=== PATIENT | female | born 1945 | race Caucasian/White ===

== ENCOUNTER → 2016-09-05 11:11 | Outpatient (CLI) | payer MEDICARE ==
[2016-05-07 14:02] VITALS: BMI 41.1
[~2016-09-05 11:11] MED LIST: ALDACTONE100 MG PO; ALDACTONE25 MG PO; BENZONATATE200 MG PO; BUMEX 1 MG TAB1 MG PO; COZAAR100 MG PO; DESYREL50 MG PO; ELIQUIS5 MG PO; FEXOFENADINE HC60 MG PO; FISH OIL 1,2001 CAP PO; FLUTICASONE PRO16 GM NASAL; GABAPENTIN100 MG PO; GLUCOPHAGE500 MG PO; HYCODAN PO; IPRAT-ALBUT 0.5-3 ML UPD; LANTUS SOL100 UNIT/1 SQ; LASIX40 MG PO; LOFIBRA134 MG PO; MOBIC7.5 MG PO; MULTAQ400 MG PO; NEURONTIN 100100 MG; NEURONTIN 300300 MG PO; NEXIUM20 MG PO; NOVOLOG100 U/M1 SC; NOVOLOG100 U/M1 SQ; PAXIL20 MG PO; PRILOSEC10 MG; PULMICORT0.5 MG/21 INH; ROBITUSSIN AC (10 M1 PO; SINGULAIR10 MG PO; STERAPRED DS 1210 MG PO; SYMBICORT 16010.2 GM INH; TOPROL XL25 MG PO; TRAZODONE HCL50 MG PO; VIBRAMYCIN 100100 MG PO; VICTOZA0.6 MG/0.1 SQ; VITAMIN B-121000 MC3; VITAMIN B-121000 MCG PO; VITAMIN D31000 UNIT PO; XOPENEX 1.1.25 MG/3 UPD; ZANTAC150 MG PO; ZITHROMAX250 MG PO; ZYLOPRIM300 MG PO
== END | disposition home or self-care (01) ==
LOC: D.RAD 10:00 → D.RT 10:00 → D.RAD 11:00
DX: J45.909 Unspecified asthma, uncomplicated (principal)

== ENCOUNTER 2017-01-29 12:11 | Outpatient (CLI) | payer MEDICARE ==
[2016-05-07 14:02] VITALS: BMI 41.1
== END 2017-01-29 16:38 ==
LOC: D.MAMMO 12:11
DX: Z12.31 Encounter for screening mammogram for malignant neoplasm of breast (principal)

== ENCOUNTER → 2017-11-10 08:37 | Outpatient (CLI) | payer MEDICARE ==
[2016-05-07 14:02] VITALS: BMI 41.1
== END | disposition home or self-care (01) ==
LOC: D.RAD 09-16 10:00 → D.RT 09-16 10:00 → D.RAD 09-16 11:00 → D.RT 08:37
DX: J44.9 Chronic obstructive pulmonary disease, unspecified (principal)

== ENCOUNTER → 2018-02-22 10:26 | Outpatient (CLI) | payer MEDICARE ==
[2016-05-07 14:02] VITALS: BMI 41.1
== END | disposition home or self-care (01) ==
LOC: D.CT 10:26
DX: R10.12 Left upper quadrant pain (principal)

== ENCOUNTER → 2018-04-06 18:31 | Outpatient (CLI) | payer MEDICARE ==
[2016-05-07 14:02] VITALS: BMI 41.1
== END | disposition home or self-care (01) ==
LOC: D.MAMMO 11:30
DX: Z12.31 Encounter for screening mammogram for malignant neoplasm of breast (principal)

== ENCOUNTER → 2018-04-30 09:10 | Outpatient (CLI) | payer MEDICARE ==
[2016-05-07 14:02] VITALS: BMI 41.1
== END | disposition home or self-care (01) ==
LOC: D.CT 09:10
DX: R10.9 Unspecified abdominal pain (principal)

== ENCOUNTER 2018-09-01 05:42 | Day surgery (SDC) | payer MEDICARE ==
[~2018-09-01] VITALS: Ht 160 cm; Wt 79.5 kg
[2018-09-01 06:08] LABS: BASOPHILS 0.6 % (0-2); EOSINOPHILS 3.1 % (0-7); HEMATOCRIT 37.5 % (36.0-48.0); HEMOGLOBIN 12.4 g/dL (12-16); IMMATURE GRANULOCYTES 0.2 % (0-5); LYMPHOCYTES 38.5 % (15-50); MCH 31.2 pg (26.0-34.0); MCHC 33.1 g/dL (31.0-37.0); MCV 94.2 fL (80.0-100.0); NEUTROPHILS 48.6 % (40-80); PLATELET COUNT 176 10x3/uL (130-400); RBC 3.98 10x6/uL (4.00-5.40); RDW 12.8 % (11.5-14.5); WBC 5.1 10x3/uL (4.8-10.8)
[2018-09-01 06:17] LABS: ANION GAP 11.5 mmol/L (8-16); CARBON DIOXIDE 30.5 mmol/L (21.0-32.0); CREATININE - SERUM 0.8 mg/dL (0.6-1.3)
[2018-09-01] MEDS ORDERED: XARELTO20 MG (06:36)
[2018-09-01] MEDS ORDERED: XARELTO20 MG PO (06:36)
[2018-09-01 06:45] VITALS: BP 118/51; Ht 160 cm; Wt 79.5 kg
--- NOTE | 2018-09-01 07:44 | NUR ---
0744-DILATE ESOPHAGUS WITH 18-20 CRE BALLOON.
--- NOTE | 2018-09-01 08:30 | NUR ---
DC INSTRUCTIONS GIVEN TO PT. STATES UNDERSTANDING. DC'D IV CATH FULLY INTACT.
--- NOTE | 2018-09-01 08:41 | NUR ---
PT LEFT UNIT VIA AT 0818
--- NOTE | 2018-09-06 10:43 | OP ---
PATIENT NAME: CHARLEY PEPE MEDICAL RECORD: [id number] :46 LOCATION:[facility] ADMISSION DATE: SURGEON: DARLING TSAI DO DATE OF OPERATION: 09/01/2018 PROCEDURE: EGD with balloon dilation and biopsies. INDICATIONS FOR PROCEDURE: Left upper quadrant abdominal pain and dysphagia, status post Schatzki ring dilation in October of 2015. SCOPE: Olympus video gastroscope. MEDICATIONS: Propofol 180 mg IV per anesthesia. ESTIMATED BLOOD LOSS: Minimal. COMPLICATIONS: None. FINDINGS: Informed consent was given. The patient was made comfortable with the above medication. After reaching an adequate level of sedation by slow IV push, the patient was placed on her left side. The endoscope was advanced under direct visualization through the mouth to the jejunum. The upper, middle, and lower thirds of the esophagus appeared normal. At the GE junction, there was some minimal reflux changes as well as some esophageal stenosis. A CRE dilating balloon was placed through the working channel of the endoscope and the stenosis was dilated up to 20 mm diameter successfully. The endoscope was advanced beyond the GE junction into the stomach and retroflexed to view the cardia and fundus, which appeared normal. In the stomach, there was evidence of a prior intervention consistent with a Olivia-en-Y gastric bypass. The gastric pouch had some vascular changes and appeared smooth with patchy erythematous sites. A single cold forceps biopsy was taken to submit for histopathology and to rule out the presence of H. pylori. The anastomosis appeared healthy. The endoscope was advanced beyond this site and into both the blind limb and Olivia limb. The endoscope traversed the jejunum approximately 40 cm. It appeared normal in its entirety. The endoscope was then withdrawn from the patient. The patient tolerated the procedure well and there were no complications. IMPRESSION: 1. Minimal reflux esophagitis. 2. Esophageal stenosis at the GE junction, status post dilation to 20 mm. 3. Gastritis. 4. History of Olivia-en-Y gastric bypass. PLAN AND RECOMMENDATIONS: 1. Discharge home when recovery parameters are met. 2. Follow up biopsy specimen results. 3. GERD diet and reflux precautions. 4. Trial of PPI 40 mg omeprazole or equivalent daily times 30 days. 5. Follow up in GI clinic in 4 weeks. If dysphagia persists, we will consider barium esophagram and/or esophageal manometry. With the patient's stenosis in the distal esophagus and GE junction, it is possible that she has achalasia. Regarding the left upper quadrant pain, I suspect that the patient's Olivia-en-Y gastric bypass could be playing a role in this and that this could be postsurgical changes. We will see what trial of PPI does for symptoms at this time. OPERATIVE REPORT [id number] LYNDONCHARLEY HORNE TRANSINT:[id number] Voice Confirmation ID: [id number] DOCUMENT ID: [id number] DARLING TSAI DO at 1043 CC: [id number] DICTATION DATE: 09/01/18 0756 FURNACE LOADER: 09/01/18 1207 [facility] 09/01/18 [facility] [address] [place] [address]
== END 2018-09-01 08:35 | disposition home or self-care (01) ==
LOC: D.OPS 05:42
PROVIDERS: Anesthesiology
DX: K22.2 Esophageal obstruction (principal); K29.70 Gastritis, unspecified, without bleeding; Z98.84 Bariatric surgery status; Z01.812 Encounter for preprocedural laboratory examination

== ENCOUNTER → 2018-10-21 08:15 | Outpatient (CLI) | payer MEDICARE ==
[2018-09-01 06:45] VITALS: BMI 31.0
[~2018-10-21 08:15] MED LIST changes: +XARELTO20 MG; +XARELTO20 MG PO
[2018-10-21 10:10] LABS: AMYLASE - SERUM 85 U/L (25-115); LIPASE 146 U/L (73-393)
== END | disposition home or self-care (01) ==
LOC: D.OPS 08:15
PROVIDERS: ATTEND Internal Medicine Gastroenterology
DX: R13.10 Dysphagia, unspecified (principal); R10.12 Left upper quadrant pain; R11.0 Nausea; Z01.812 Encounter for preprocedural laboratory examination

== ENCOUNTER → 2018-11-09 08:52 | Outpatient (CLI) | payer MEDICARE ==
[2018-09-01 06:45] VITALS: BMI 31.0
== END | disposition home or self-care (01) ==
LOC: D.RT 08:52
PROVIDERS: ATTEND Internal Medicine Pulmonary Disease
DX: J44.9 Chronic obstructive pulmonary disease, unspecified (principal)

== ENCOUNTER 2018-12-15 09:26 | Day surgery (SDC) | payer MEDICARE ==
[2018-12-15 10:05] LABS: HEMATOCRIT 35.8 % (36.0-48.0); MCH 30.9 pg (26.0-34.0); MCHC 33.5 g/dL (31.0-37.0); MCV 92.3 fL (80.0-100.0); MEAN PLATELET VOLUME 9.9 fL (7.4-10.4); RBC 3.88 10x6/uL (4.00-5.40); RDW 12.6 % (11.5-14.5); WBC 6.5 10x3/uL (4.8-10.8)
[2018-12-15] MEDS ORDERED: TESSALON PERLE100 MG PO (10:47)
[2018-12-15] MEDS ORDERED: XALATAN 0.0052.5 ML EACH EYE (10:47)
[2018-12-15] MEDS ORDERED: CALCIUM 250+D T1 TAB PO (10:48)
[2018-12-15 11:15] VITALS: BP 120/52; BMI 31.0
--- NOTE | 2018-12-20 07:50 | OP ---
PATIENT NAME: CHARLEY PEPE MEDICAL RECORD: [id number] :46 LOCATION:[facility] ADMISSION DATE: SURGEON: DARLING TSAI DO DATE OF OPERATION: 12/15/2018 PROCEDURE: EGD. INDICATIONS FOR PROCEDURE: Dysphagia, status post dilation in August of 2018. SCOPE: Olympus video gastroscope. MEDICATIONS: Propofol 50 mg IV per anesthesia. ESTIMATED BLOOD LOSS: None. COMPLICATIONS: None. FINDINGS: Informed consent was given. The patient was made comfortable with the above medication. After reaching an adequate level of sedation by slow IV push, the patient was placed on her left side. The endoscope was advanced under direct visualization through the mouth to the jejunum. The entire esophagus appeared normal. At the GE junction, there were minimal changes of reflux esophagitis. The previously mentioned Schatzki ring present at the GE junction on the barium esophagram was not appreciated on this examination. The endoscope was then advanced into the stomach where a significant amount of food retention was encountered. Retroflexion was not performed due to this. The endoscope was able to be advanced to the gastrojejunostomy, which appeared normal and patent. It did not appear to be strictured or narrowed. The endoscope was advanced into the jejunum for a short period before withdrawing due to safety concerns with the significant food retention. The endoscope was completely withdrawn from the patient. The patient tolerated the procedure well and there were no complications. IMPRESSIONS: 1. Minimal reflux esophagitis. 2. Significant food retention concerning for gastroparesis. 3. History of gastric bypass with a gastrojejunostomy, which is patent. PLAN AND RECOMMENDATIONS: 1. Discharge home when recovery parameters are met. 2. We will discuss a gastric emptying scan with the patient and schedule if she wishes. 3. Regarding the findings on the esophagram and manometry study, the condition is difficult to address completely. The barium esophagram was normal other than a prominent Schatzki's ring, which was nonobstructing. She also had question of narrowing at the gastrojejunostomy. That is not evident on endoscopy today. I believe the tablet was reaching the distal stomach and the gastrojejunostomy is somewhat positioned on the side of the stomach, creating an angle where a tablet would pass by it. Regarding the manometry study, the patient had 20% swallows, which were weak and 20%, which were ineffective. She did have a very slightly increased basal and residual lower esophageal sphincter pressure, which created an outflow obstruction reporting from the GE junction on Irvine classification findings. At this time, we will proceed with gastric emptying scan and make sure that this is not contributing to her overall symptomatology. As described, last time, she may be developing achalasia and this may just be incomplete OPERATIVE REPORT [id number] CHARLEY PEPE achalasia. TRANSINT:[id number] Voice Confirmation ID: [id number] DOCUMENT ID: [id number] DARLING TSAI DO at 0750 CC: [id number] DICTATION DATE: 12/15/18 1154 CYCLING INSTRUCTOR: 12/15/18 1212 [facility] 12/15/18 [facility] [address] [place] [address]
== END 2018-12-15 13:45 | disposition home or self-care (01) ==
LOC: D.OPS 09:26
PROVIDERS: Anesthesiology; ATTEND Internal Medicine Gastroenterology
DX: K21.0 Gastro-esophageal reflux disease with esophagitis (principal); Z98.84 Bariatric surgery status; Z93.4 Other artificial openings of gastrointestinal tract status; Z01.812 Encounter for preprocedural laboratory examination

== ENCOUNTER → 2018-12-29 11:04 | Outpatient (CLI) | payer MEDICARE ==
[2018-12-15 11:15] VITALS: BMI 31.0
[~2018-12-29 11:04] MED LIST changes: +CALCIUM 250+D T1 TAB PO; +TESSALON PERLE100 MG PO; +XALATAN 0.0052.5 ML EACH EYE
== END | disposition home or self-care (01) ==
LOC: D.RAD 11:04
PROVIDERS: ATTEND Internal Medicine Gastroenterology
DX: R13.10 Dysphagia, unspecified (principal)

== ENCOUNTER → 2018-12-31 10:53 | Outpatient (CLI) | payer MEDICARE ==
[2018-12-15 11:15] VITALS: BMI 31.0
== END | disposition home or self-care (01) ==
LOC: D.NM 12-24 09:22
PROVIDERS: ATTEND Internal Medicine Gastroenterology
DX: R10.84 Generalized abdominal pain (principal); R11.0 Nausea

== ENCOUNTER → 2019-06-23 10:46 | Outpatient (CLI) | payer MEDICARE | END | disposition home or self-care (01) | LOC: D.RT 10:46 | PROVIDERS: ATTEND Internal Medicine Pulmonary Disease | DX: J44.9 Chronic obstructive pulmonary disease, unspecified (principal) ==

== ENCOUNTER → 2019-07-21 23:17 | Outpatient (CLI) | payer MEDICARE | END | disposition home or self-care (01) | LOC: D.MAMMO 11:45 | PROVIDERS: ATTEND Family Medicine | DX: N64.4 Mastodynia (principal) ==

== ENCOUNTER 2020-11-22 06:59 | Day surgery (SDC) | payer MEDICARE ==
[~2020-11-22] VITALS: Ht 160 cm; Wt 87.5 kg
[~2020-11-22 06:59] MED LIST changes: +ALBUTEROL SULF8.5 GM INH; +BAYER CHEWABLE81 MG PO; +BREO ELLIPTA 11 EACH INH; +MELATONIN 3 MG1 TAB PO; +PRAVASTATIN TAB 10M PO; +VITAMIN B-122500 MCG PO; +VITAMIN C500 M1 PO; +VITAMIN D-32000 UNIT PO
[2020-11-22 07:25] LABS: BASOPHILS 0.1 % (0-2); EOSINOPHILS 0.1 % (0-7); HEMATOCRIT 38.2 % (36.0-48.0); HEMOGLOBIN 12.3 g/dL (12-16); IMMATURE GRANULOCYTES 0.4 % (0-5); LYMPHOCYTE ABS# 2.43 10x3/uL (1.18-3.74); LYMPHOCYTES 24.6 % (15-50); MCH 29.6 pg (26.0-34.0); MCHC 32.2 g/dL (31.0-37.0); MCV 91.8 fL (80.0-100.0); MEAN PLATELET VOLUME 9.9 fL (7.4-10.4); MONOCYTES 7.6 % (2-11); NEUTROPHIL ABS# 6.62 10x3/uL (1.56-6.13); NEUTROPHILS 67.2 % (40-80); PLATELET COUNT 300 10x3/uL (130-400); RBC 4.16 10x6/uL (4.00-5.40); RDW 14.2 % (11.5-14.5); WBC 9.9 10x3/uL (4.8-10.8)
[2020-11-22 07:34] LABS: CALCIUM 9.1 mg/dL (8.5-10.1); CARBON DIOXIDE 30.4 mmol/L (21.0-32.0); CREATININE - SERUM 0.9 mg/dL (0.6-1.3); POTASSIUM - SERUM 3.4 mmol/L (3.5-5.1)
[2020-11-22 08:48] VITALS: BP 147/60; Ht 160 cm; Wt 87.5 kg
[2020-11-22] MEDS ORDERED: HYDROCODON-ACE1 EA10 PO (12:19)
--- NOTE | 2020-11-22 12:34 | NUR ---
UPON FURTHER ASSESSMENT PATIENT DENIES NUMBNESS/TINGLING TO ANY EXTREMITY. SENSATIONS INTACT.
--- NOTE | 2020-11-22 13:45 | NUR ---
PT HAD NORCO SCRIPT, PT IS ALLERGIC. THIS NURSE SPOKE TO DR OTTO. STATES HE WILL HAVE HIS OFFICE TAKE CARE OF PAIN MED SCRIPT FOR PATIENT. 1350 DC TEACHING WITH PT AND DAUGHTER. VERBALIZES UNDERSTANDING. STATES NO FURTER QUESTIONS.
--- NOTE | 2020-11-22 17:05 | NUR ---
SCANNED BLADDER- [address] OTTO NOTIFIED, ORDER GIVEN FOR IN AND OUT CATHETER 1725 IN AND OUT CATH COMPLETE WITH APPROXIMATELY 800ML CLEAR YELLOW URINE. PT TOLERATED WELL. INFORMED PT TO CONTACT DR OTTO'S CLINIC WITH ANY QUESTIONS OR CONCERNS. REMOVED PIV, CATH INTACT, DAUGHTER ASSISTED DRESSING PT 1745 DC'D PT VIA WC TO POV WITH DAUGHTER DRIVING. DAUGHTER AND PT HAVE ALL BELONGINGS AND DC PACKET.
--- NOTE | 2020-11-23 09:13 | OP ---
PATIENT NAME: CHARLEY PEPE MEDICAL RECORD: [id number] :47 LOCATION:[facility] ADMISSION DATE: SURGEON: KEVIN LOCKETT MD DATE OF OPERATION: 11/22/2020 DATE OF SERVICE: 11/22/2020 PREOPERATIVE DIAGNOSES: Lumbar spinal stenosis and foraminal stenosis at L4-L5 and L5-S1, left. POSTOPERATIVE DIAGNOSES: Lumbar spinal stenosis and foraminal stenosis, L4-L5, and L5-S1, left. PROCEDURE: Lumbar laminotomy, medial facetectomy and foraminotomy L4-L5 and L5-S1, left. SURGEON: Kevin Lockett MD DESCRIPTION OF PROCEDURE: After induction of general endotracheal anesthesia, the patient was rolled prone on a Campbell frame. The lumbar spine was prepped and draped in the usual sterile fashion. Fluoroscopic x-ray and a spinal needle localized the L4-L5 interspace on the left side. Series of dilators were used to advance a METRx retractor to the L4-L5 interspace on the left. Level was confirmed with fluoroscopic x-ray. A microscope and Midas Jett drill was used to perform laminotomy, medial facetectomy and foraminotomy at L4-L5 on the left. Hypertrophied ligamentum flavum was removed with Cloward rongeurs. Following this, the left L5 and S1 nerve roots were decompressed as well. Meticulous hemostasis was maintained throughout the wound. The wound was irrigated with copious amounts of Ancef irrigant solution. The retractor was removed. The fascia was closed with 2-0 Vicryl suture. Subdermal layer was closed with 3-0 Vicryl suture. Skin was closed with eric. A sterile dressing was applied to the wound. The patient was awakened in good condition and taken to recovery. All counts were reported as correct. Estimated blood loss was minimal. TRANSINT:[id number] Voice Confirmation ID: [id number] DOCUMENT ID: [id number] KEVIN LOCKETT MD at 0913 CC: [id number] DICTATION DATE: 11/22/20 1223 BOAT LOADER HELPER: 11/22/20 1244 [facility] 11/22/20 [place] [address]
== END 2020-11-22 17:45 | disposition home or self-care (01) ==
LOC: D.OPS 06:59
PROVIDERS: Anesthesiology; ATTEND Neurological Surgery
DX: M48.061 Spinal stenosis, lumbar region without neurogenic claudication (principal); M48.07 Spinal stenosis, lumbosacral region; M54.16 Radiculopathy, lumbar region; E78.5 Hyperlipidemia, unspecified; E11.9 Type 2 diabetes mellitus without complications; I10 Essential (primary) hypertension; I48.91 Unspecified atrial fibrillation; J44.9 Chronic obstructive pulmonary disease, unspecified; J45.909 Unspecified asthma, uncomplicated